=== PATIENT | male | born 1980 | race Caucasian/White ===

== ENCOUNTER → 2021-07-16 | Outpatient (CLI) | payer BC ==
--- NOTE | 2021-07-16 12:13 | XR ---
EXAM TYPE: LUMBAR SPINE X RAY SERIES COMPARISON: NONE HISTORY: Pain TECHNIQUE: 3 views are submitted. FINDINGS: Alignment is anatomic. The pedicles are intact. The transverse processes are intact. There is conchita re degenerative disc disease L5-S1. IMPRESSION: 1. Severe degenerative disc disease L5-S1.
== END | disposition home or self-care (01) ==
LOC: RADXRMAIN 11:45
PROVIDERS: ATTEND Nurse Practitioner Family
DX: M51.37 Other intervertebral disc degeneration, lumbosacral region (principal)
CPT/HCPCS: 72100

== ENCOUNTER → 2021-07-28 | Outpatient (CLI) | payer BC ==
--- NOTE | 2021-07-28 22:39 | MR ---
EXAMINATION TYPE: MR lumbar spine wo con DATE OF EXAM: 07/28/2021 COMPARISON: Outside MRI lumbar spine September 30, 2015. Lumbar spine x-ray July 16, 2021. HISTORY: Lt leg numbness, radiculopathy TECHNIQUE: Multiplanar, multisequence imaging of the lumbar spine is performed without IV contrast. FINDINGS: Sagittal images of the lumbar spine show vertebral body heights to remaining satisfactory. Stable slight grade 1 retrolisthesis L5 on S1. Persistent disc desiccation with moderate disc space n arrowing L5-S1 level. Posterior disc herniation with annular tear redemonstrated. The conus medullari s remains normal in position and signal ending in mid-L1 level. The bone marrow signal intensity is within normal limits. Axial images show T12-L1, L1-L2, L2-L3, L3-L4, and L4-L5 levels all to remain within normal limits. Axial images at L5-S1 level demonstrates mild facet arthropathy with mild to moderate broad disc bulg e. Spinal canal is preserved. There is mild left-sided neural foraminal narrowing. Larger eccentric d isc herniation was present on 2015 MRI at this level. Paraspinal muscle bulk is maintained. IMPRESSION: Improved disc herniation L5-S1 level. No new disc herniations are present.
== END | disposition home or self-care (01) ==
LOC: RADMRIMAIN 07:48
PROVIDERS: ATTEND Nurse Practitioner Family
DX: M51.17 Intervertebral disc disorders with radiculopathy, lumbosacral region (principal)
CPT/HCPCS: 72148